=== PATIENT | male | born 1935 | race Two or more races ===

== ENCOUNTER 2017-06-09 04:55 | Emergency (ER) | payer OTHER ==
[~2017-06-09] VITALS: Ht 157.5 cm; Wt 68.0 kg
[~2017-06-09 04:55] MED LIST: ACCUPRIL5 MG; ALLOPURINOL100 MG; FOLIC ACID 2.51 EACH; LEVAQUIN500 MG PO; LEVOTHYROXINE88 MCG; MEDROLPACK PO; NORVASC2.5 MG; PREVACID15 MG; SIMVASTATIN10 MG; TUSSI PRES-B L120 M1 PO
== END 2017-06-09 14:13 | disposition home or self-care (01) ==
LOC: ER 04:55
DX: J45.998 Other asthma (principal); J11.1 Influenza due to unidentified influenza virus with other respiratory manifestations

== ENCOUNTER 2023-08-10 10:36 | Emergency (ER) | payer OTHER ==
[~2023-08-10] VITALS: Ht 167.6 cm; Wt 68.0 kg
[2023-08-10] MEDS ORDERED: ACETAMINOPHEN 500 MG GEL..CAP PO STA (13:25)
[2023-08-10] MEDS ORDERED: 0.9 % SODIUM CHLORIDE 500 ML IV STA (13:26)
[2023-08-10 14:10] LABS: PH,URINE 5.5 (5.0-8.0); URINE APPEARANCE Clear; URINE BILIRRUBIN Negative (NEGATIVE); URINE BLOOD Negative; URINE COLOR Yellow; URINE GLUCOSE Negative (NEGATIVE); URINE LEUKOCYTE Negative; URINE NITRATE Negative; URINE PROTEIN Trace (NEGATIVE)
[2023-08-10 14:14] LABS: URINE BACTERIA 12.5 uL (0.0-1933); URINE EPITHELIAL CELLS 2.7 uL (0.0-38.8); URINE RBC 5.1 uL (0.0-20.8)
[2023-08-10 14:20] LABS: HEMATOCRIT 44.9 % (39.0-48.0); HEMOGLOBIN 15.2 g/dL (13-16.00); MEAN CELL VOLUME 92.5 fL (80.0-100.00); MEAN CORPUSCULAR HEMOGLOBIN 31.4 pg (27.00-32.0); MEAN CORPUSCULAR HGB CONC 33.9 g/dl (32.0-36.0); RED BLOOD COUNT 4.85 M/uL (4.00-6.00); RED CELL DISTRIBUTION WIDTH 15.8 % (11.5-14.5)
[2023-08-10 14:25] LABS: ALBUMIN 3.3 gm/dL (3.4-5.0); BILIRUBIN TOTAL 0.47 mg/dL (0.3-1.2); CALCIUM 8.7 mg/dL (8.5-10.1); CREATININE SERUM 1.1 mg/dL (0.70-1.30); GFR 63.03; GLOBULINA 3.8 G/DL (2.4-3.5); POTASSIUM 4.51 mEq/L (3.5-5.1); TOTAL PROTEIN 7.1 gm/dL (6.4-8.2)
[2023-08-10 14:29] LABS: URINE WBC 1.3 uL (0.0-23.2)
[2023-08-10 15:01] LABS: PLATELET COUNT 88 K/uL (150-450)
[2023-08-11] MEDS ORDERED: SIMVASTATIN5 MG PO (11:44)
== END 2023-08-10 18:17 | disposition home or self-care (01) ==
LOC: ER
PROVIDERS: General Practice
DX: A90 Dengue fever [classical dengue] (principal); I10 Essential (primary) hypertension
CPT/HCPCS: 36415; 96365; 99283; J3490

== ENCOUNTER 2023-08-11 11:11 | Inpatient (IN) | payer OTHER ==
[~2023-08-11] VITALS: Ht 167.6 cm; Wt 63.5 kg
[2023-08-11] MEDS ORDERED: SIMVASTATIN5 MG PO (11:44)
[2023-08-11] MEDS ORDERED: ACETAMINOPHEN 500 MG GEL..CAP PO SCH (12:14)
[2023-08-11] MEDS ORDERED: 0.9 % SODIUM CHLORIDE 1,000 ML IV SCH ×2 (12:15→15:00)
[2023-08-11 12:53] LABS: HEMATOCRIT 43.7 % (39.0-48.0); HEMOGLOBIN 14.9 g/dL (13-16.00); MEAN CELL VOLUME 91.8 fL (80.0-100.00); MEAN CORPUSCULAR HEMOGLOBIN 31.2 pg (27.00-32.0); RED BLOOD COUNT 4.76 M/uL (4.00-6.00)
[2023-08-11 12:55] LABS: PLATELET COUNT 45 K/uL (150-450)
[2023-08-11 13:07] LABS: ALBUMIN 2.8 gm/dL (3.4-5.0); BILIRUBIN TOTAL 0.35 mg/dL (0.3-1.2); CALCIUM 8.8 mg/dL (8.5-10.1); CREATININE SERUM 0.99 mg/dL (0.70-1.30); GFR 71.18; GLOBULINA 3.5 G/DL (2.4-3.5); POTASSIUM 4.02 mEq/L (3.5-5.1); TOTAL PROTEIN 6.3 gm/dL (6.4-8.2)
[2023-08-11] MEDS ORDERED: CYANOCOBALAMIN (VITAMIN B-12) 1,000 MCG TABLET PO SCH (15:34)
[2023-08-11] MEDS ORDERED: FOLIC ACID 1 MG TABLET PO SCH (15:35)
[2023-08-12] MEDS ORDERED: LEVOTHYROXINE SODIUM 88 MCG TABLET PO SCH (06:00)
[2023-08-12 06:20] LABS: INR 0.99; PARTIAL THROMBOPLASTIN TIME 31.9 SECONDS (22.0-34.0); PROTHROMBIN TIME 10.4 SECONDS (9.0-11.5)
[2023-08-12 08:34] LABS: ALBUMIN 2.7 gm/dL (3.4-5.0); BILIRUBIN TOTAL 0.5 mg/dL (0.3-1.2); BILIRUBIN,CONJUGATED 0.21 mg/dL (0.0-0.2); BILIRUBIN,UNCONJUGATED 0.29 mg/dL (0.0-0.6); CALCIUM 8.1 mg/dL (8.5-10.1); CREATININE SERUM 0.64 mg/dL (0.70-1.30); GFR 117.75; MAGNESIUM 2.1 mg/dL (1.8-2.4); POTASSIUM 4.1 mEq/L (3.5-5.1); TOTAL PROTEIN 5.5 gm/dL (6.4-8.2)
[2023-08-12 08:37] LABS: C-REACTIVE PROTEIN 1.58 MG/DL (0.00-0.29)
[2023-08-12 08:38] LABS: PH,URINE 6.5 (5.0-8.0); URINE APPEARANCE Clear; URINE BILIRRUBIN Negative (NEGATIVE); URINE BLOOD Negative; URINE COLOR Yellow; URINE GLUCOSE Negative (NEGATIVE); URINE LEUKOCYTE Negative; URINE NITRATE Negative; URINE PROTEIN Negative (NEGATIVE)
[2023-08-12 08:44] LABS: URINE BACTERIA 7.5 uL (0.0-1933); URINE RBC 7.6 uL (0.0-20.8)
[2023-08-12 08:50] LABS: URINE EPITHELIAL CELLS 0.9 uL (0.0-38.8)
[2023-08-12] MEDS ORDERED: ENALAPRIL MALEATE 5 MG TABLET PO SCH (09:00)
[2023-08-12] MEDS ORDERED: ALLOPURINOL 100 MG TABLET PO SCH (09:00)
[2023-08-12 10:10] LABS: HEMATOCRIT 46.9 % (39.0-48.0); RED BLOOD COUNT 5.03 M/uL (4.00-6.00)
[2023-08-12 10:11] LABS: MEAN CELL VOLUME 93.2 fL (80.0-100.00); MEAN CORPUSCULAR HEMOGLOBIN 31.9 pg (27.00-32.0); MEAN CORPUSCULAR HGB CONC 34.2 g/dl (32.0-36.0); RED CELL DISTRIBUTION WIDTH 15.7 % (11.5-14.5)
[2023-08-12 10:14] LABS: PLATELET COUNT 28 K/uL (150-450)
[2023-08-12 15:24] LABS: TSH 9.88 uIU/mL (0.358-3.74)
[2023-08-12] MEDS ORDERED: AMLODIPINE BESYLATE 10 MG TABLET PO STA (18:23)
[2023-08-12] MEDS ORDERED: ENALAPRILAT DIHYDRATE 1.25 MG/ML VIAL IV PRN (22:15)
[2023-08-13 06:30] LABS: HEMATOCRIT 42.4 % (39.0-48.0); HEMOGLOBIN 14.4 g/dL (13-16.00); MEAN CELL VOLUME 91.3 fL (80.0-100.00); MEAN CORPUSCULAR HGB CONC 33.9 g/dl (32.0-36.0); RED BLOOD COUNT 4.64 M/uL (4.00-6.00); RED CELL DISTRIBUTION WIDTH 15.9 % (11.5-14.5)
[2023-08-13 07:32] LABS: PLATELET COUNT 28 K/uL (150-450)
[2023-08-13] MEDS ORDERED: AMLODIPINE BESYLATE 10 MG TABLET PO SCH (09:00)
[2023-08-13] MEDS ORDERED: LISINOPRIL 10 MG TABLET PO SCH (09:08)
[2023-08-13] MEDS ORDERED: METHYLPREDNISOLONE SOD SUCC 40 MG VIAL IV SCH (12:17)
[2023-08-13] MEDS ORDERED: PANTOPRAZOLE SODIUM 40 MG TABLET.DR PO SCH (12:17)
[2023-08-13] MEDS ORDERED: SIMVASTATIN 20 MG TABLET PO SCH (17:00)
[2023-08-14 07:56] LABS: HEMATOCRIT 43.6 % (39.0-48.0); HEMOGLOBIN 14.8 g/dL (13-16.00); MEAN CELL VOLUME 91.2 fL (80.0-100.00); MEAN CORPUSCULAR HEMOGLOBIN 30.9 pg (27.00-32.0); MEAN CORPUSCULAR HGB CONC 33.9 g/dl (32.0-36.0); RED BLOOD COUNT 4.78 M/uL (4.00-6.00); RED CELL DISTRIBUTION WIDTH 15.5 % (11.5-14.5)
[2023-08-14 08:37] LABS: ALBUMIN 2.9 gm/dL (3.4-5.0); BILIRUBIN TOTAL 0.52 mg/dL (0.3-1.2); BILIRUBIN,CONJUGATED 0.17 mg/dL (0.0-0.2); BILIRUBIN,UNCONJUGATED 0.35 mg/dL (0.0-0.6); CALCIUM 8.8 mg/dL (8.5-10.1); CREATININE SERUM 0.67 mg/dL (0.70-1.30); GFR 111.69; MAGNESIUM 1.9 mg/dL (1.8-2.4); POTASSIUM 3.9 mEq/L (3.5-5.1); TOTAL PROTEIN 6.1 gm/dL (6.4-8.2)
[2023-08-14 08:49] LABS: PLATELET COUNT 43 K/uL (150-450)
[2023-08-15 06:38] LABS: HEMATOCRIT 42.9 % (39.0-48.0); HEMOGLOBIN 14.5 g/dL (13-16.00); MEAN CELL VOLUME 91.8 fL (80.0-100.00); MEAN CORPUSCULAR HEMOGLOBIN 31.1 pg (27.00-32.0); MEAN CORPUSCULAR HGB CONC 33.8 g/dl (32.0-36.0); RED BLOOD COUNT 4.67 M/uL (4.00-6.00); RED CELL DISTRIBUTION WIDTH 15.4 % (11.5-14.5)
[2023-08-15 06:43] LABS: PLATELET COUNT 66 K/uL (150-450)
[2023-08-15] MEDS ORDERED: VITAMIN B-121000 MCG PO (09:25)
[2023-08-15] MEDS ORDERED: PANTOPRAZOLE SO40 MG PO (09:25)
[2023-08-15] MEDS ORDERED: FOLIC ACID1 MG PO (09:25)
[2023-08-15] MEDS ORDERED: PREDNISONE20 MG PO (09:27)
== END 2023-08-15 13:15 | disposition home or self-care (01) | DRG 866 ==
LOC: ER 11:11 → MEDJ 16:24
PROVIDERS: General Practice; ADMIT Internal Medicine; ATTEND Internal Medicine
PROC: BW40ZZZ Ultrasonography of Abdomen (ICD-10-PCS; principal; 2023-08-12)
DX: A90 Dengue fever [classical dengue] (principal); D69.6 Thrombocytopenia, unspecified; R30.0 Dysuria; I10 Essential (primary) hypertension